=== PATIENT | male | born 2000 | race Caucasian/White ===

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

== ENCOUNTER → 2020-03-22 11:52 | Outpatient (CLI) | payer BC, SELFPAY | LOC: LAB 11:59 | PROVIDERS: PCP Nurse Practitioner Family; Visit Provider Student in an Organized Health Care Education/Training Program | DX: L02.91 Cutaneous abscess, unspecified (principal) | CPT/HCPCS: 87070; 87077; 87147; 87186; 87205 ==

== ENCOUNTER → 2021-04-29 16:43 | Outpatient (CLI) | payer OTHER, SELFPAY ==
--- NOTE | 2021-04-29 16:46 | DI.RAD.S_ITS ---
PROCEDURE: XR ELBOW RT MIN 3V INDICATIONS: pain TECHNIQUE: 3 views of the elbow were acquired. COMPARISON: None. FINDINGS: Bones: No fractures or dislocations. No suspicious bony lesions. Soft tissues: No elbow joint effusion. No suspicious soft tissue calcifications. IMPRESSION: No visualized acute fracture or dislocation. However, if clinical concern and/or pain persist, short interval imaging followup in 7-10 days is recommended, as occult injury cannot be definitively excluded. Dictated by: Aracelis Monet M.D. on 04/29/2021 at 17:09 Approved by: Aracelis Monet M.D. on 04/29/2021 at 17:11
== END ==
PROVIDERS: PCP Nurse Practitioner Family; Referring Provider Nurse Practitioner Family; Visit Provider Nurse Practitioner Family
DX: M25.521 Pain in right elbow (principal)
CPT/HCPCS: 73080

== ENCOUNTER 2024-01-18 18:19 | Emergency (ER) | payer OTHER, SELFPAY ==
[2024-01-18 18:23] VITALS: BP 110/61; PULSE 82; RESP 16; TEMP 36.4; O2SAT 98; BMI 17.6
--- NOTE | 2024-01-18 18:51 | ED.HA ---
HPI - Headache General Chief Complaint: Headache Stated Complaint: muscle spasms/dizzy/rt arm pain Time Seen by Provider: 01/18/24 18:47 Source: patient Mode of arrival: Ambulatory Limitations: no limitations History of Present Illness HPI Narrative: 23-year-old male here for evaluation of an episode that occurred earlier this evening where he states that he was at work when he suddenly felt like he was getting spasms in his right arm. He states that it started midway up his biceps an extended down into his right hand. He was also getting dizzy. He states that the symptoms in his right arm have resolved. He was starting to have similar symptoms in his left arm. No chest pain. No shortness of breath. No vision changes. No balance issues. Related Data Home Medications Medication Instructions Recorded Confirmed clonidine HCl 0.1 mg tablet 0.1 mg PO Q DAY #0 tabs 10/29/18 04/29/21 fluoxetine PO 11/09/18 04/29/21 lamictal PO 11/09/18 04/29/21 Allergies Allergy/AdvReac Type Severity Reaction Status Date / Time No Known Drug Allergies Allergy Verified 04/29/21 16:53 Review of Systems Review of Systems Narrative: See HPI Patient History Medical History Tinnitus (~2014) Surgical History (Updated 02/14/19 @ 16:24 by Brandy Hernadez PA-C) No pertinent past surgical history Social History Smoking Status: Never smoker Smoking Status: Never smoker alcohol intake frequency: a few times a month Substance Use Type: does not use Exam Initial Vital Signs Initial Vital Signs: Vital Signs Temperature 97.6 F 01/18/24 18:23 Pulse Rate 82 01/18/24 18:23 Respiratory Rate 16 01/18/24 18:23 Blood Pressure 110/61 01/18/24 18:23 Pulse Oximetry 98 01/18/24 18:23 Oxygen Delivery Method Room Air 01/18/24 18:23 Const General: cooperative, comfortable and No ill appearing HENMT Head: normal to inspection and normocephalic Resp Effort & Inspection: normal respiratory effort Auscultation: clear to auscultation bilaterally Cardio Rate: regular rate Skin General: no rashes or lesions noted Neuro General: patient alert, patient awake, patient oriented x3 and moves all extremities Cranial Nerves: CN's II-XI intact bilaterally Cognition: normal cognition Speech: speech normal Motor: muscle tone normal throughout Sensory Exam: no sensory deficits noted Extrem General: capillary refill normal Course Orders Ordered: ED Orders 01/18/24 18:55 Basic Metabolic Panel Stat Complete Blood Count AUTO DIFF Stat Magnesium Stat Vital Signs Vital signs: Vital Signs - 8 hr 01/18/24 18:23 01/18/24 19:30 Temperature 97.6 F Pulse Rate 82 61 Respiratory Rate 16 16 Blood Pressure 110/61 104/63 Pulse Oximetry 98 100 Oxygen Delivery Method Room Air MDM - Headache Lab Data Attestation: I reviewed the patient's lab results. 01/18/24 18:55 01/18/24 18:55 Labs: Lab Results 01/18/24 Range/Units 18:55 WBC 5.0 (4.5-11.0) X10^3/uL RBC 4.81 (4.5-5.9) X10^6/uL Hgb 14.6 (13.5-17.5) g/dL Hct 41.9 (41-53) % MCV 87.1 (80-100) fL MCH 30.3 (26-34) PG MCHC 34.8 (30-36) % RDW 13.8 (11.6-14.8) % Plt Count 263 (150-400) X10^3/uL Neut % (Auto) 67.4 (50-75) % Lymph % (Auto) 25.9 (25-40) % [place] % (Auto) 5.8 (3-14) % Eos % (Auto) 0.4 L (2-4) % Baso % (Auto) 0.5 (0-2) % Neut # (Auto) 3300 (4813-4121) /uL Lymph # (Auto) 1300 (8292-4932) /uL [place] # (Auto) 300 (0-900) /uL Eos # (Auto) 0 (0-450) /uL Baso # (Auto) 0 (0-100) /uL Sodium 141 (137-145) mmol/L Potassium 3.6 (3.4-5.1) mmol/L Chloride 105 (98-107) mmol/L Carbon Dioxide 29 (22-32) mmol/L BUN 10 (9-20) mg/dL Creatinine 0.82 (0.66-1.25) mg/dL Estimated GFR > 60 (>60) mL/min BUN/Creatinine Ratio 12.2 (6-22) Glucose 97 (70-100) mg/dL Calcium 9.4 (8.4-10.2) mg/dL Magnesium 1.8 (1.6-2.3) mg/dL MDM Narrative Medical decision making narrative: Labs are unremarkable. Symptoms have improved. Low suspicion for CVA. His symptoms do not follow a nerve distribution would be consistent with a CVA. Low suspicion for TIA. Potentially a transient arrhythmia although sinus rhythm on his monitor. Electrolytes are unremarkable. Reassured patient that workup here in the emergency department is very reassuring. Will discharge patient home with return precautions. Big expressed understanding and agreement with plan. Discharge Plan Departure Patient Disposition: Home Clinical Impression: Paresthesias Activity Restrictions/Additional Instructions: Continue to take all of your medications as directed. Recommend that you contact your primary care doctor for a follow-up. Return to the emergency department for new or worsening symptoms. Prescriptions: No Action fluoxetine PO lamictal PO clonidine HCl 0.1 mg tablet 0.1 mg PO Q DAY Qty: 0 Referrals: Miscellaneous,DoctorMD [Primary Care Provider] - Stand Alone Forms: Patient Portal/API
[2024-01-18 19:08] LABS: Add Manual Diff / Slide Review NO; Basophils Absolute Auto 0 /uL (0-100); Basophils Percent Auto 0.5 % (0-2); Eosinophils Absolute Auto 0 /uL (0-450); Eosinophils Percent Auto 0.4 % (2-4); Hematocrit 41.9 % (41-53); Hemoglobin 14.6 g/dL (13.5-17.5); Lymphocytes Absolute Auto 1300 /uL (1100-4500); Lymphocytes Percent Auto 25.9 % (25-40); Mean Corpuscular HGB Conc 34.8 % (30-36); Mean Corpuscular Hemoglobin 30.3 PG (26-34); Mean Corpuscular Volume 87.1 fL (80-100); Monocytes Absolute Auto 300 /uL (0-900); Monocytes Percent Auto 5.8 % (3-14); Neutrophils Absolute Auto 3300 /uL (1500-7000); Neutrophils Percent Auto 67.4 % (50-75); Platelet Count 263 X10^3/uL (150-400); Red Blood Cell Count 4.81 X10^6/uL (4.5-5.9); Red Cell Distribution Width 13.8 % (11.6-14.8)
[2024-01-18 19:22] LABS: BUN Creatinine Ratio 12.2 (6-22); Blood Urea Nitrogen 10 mg/dL (9-20); Calcium 9.4 mg/dL (8.4-10.2); Carbon Dioxide 29 mmol/L (22-32); Chloride 105 mmol/L (98-107); Estimated Glomerular Filt Rate > 60 mL/min (>60); Glucose 97 mg/dL (70-100); HEMOLYSIS < 15 (0-50); Magnesium 1.8 mg/dL (1.6-2.3); Potassium 3.6 mmol/L (3.4-5.1); Sodium 141 mmol/L (137-145)
[2024-01-18 19:30] VITALS: BP 104/63; PULSE 61; RESP 16; O2SAT 100
== END 2024-01-18 20:00 | disposition home or self-care (01) ==
PROVIDERS: Emergency Provider Emergency Medicine
DX: R20.2 Paresthesia of skin (principal)
CPT/HCPCS: 36415; 80048; 83735; 85025; 99283

== ENCOUNTER → 2024-07-26 13:58 | Outpatient (CLI) | payer OTHER, SELFPAY ==
[2024-07-26 16:14] LABS: Urine N gonorrhoeae NOT DETECTED
[2024-07-26 16:18] LABS: Urine Chlamydia NOT DETECTED
== END ==
PROVIDERS: Visit Provider Physician Assistant Medical
DX: R35.0 Frequency of micturition (principal)
CPT/HCPCS: 87086; 87491; 87591